=== PATIENT | female | born 1925 | race Caucasian/White ===

== ENCOUNTER 2016-08-13 11:32 | Inpatient (IN) | payer MEDICARE ==
[~2016-08-13] VITALS: Ht 144.8 cm; Wt 49.2 kg
[~2016-08-13 11:32] MED LIST: ANTIVERT/2525 MG PO; ARICEPT10 M1 PO; ASPIR 8181 MG PO; ASPIRIN325 MG PO; COZAAR50 MG PO; DUONEB 3 MG/3 ML3 M1 INH; HYDROCHLOROTHIA25 MG PO; HYDROCODONE BIT1 T11 PO; HYDRODIURIL25 MG PO; LOSARTAN POTAS100 M1 PO; Lovenox30 MG/0.3 SC; NAPROSYN500 MG PO; PRILOSEC20 MG PO; PROTONIX40 MG PO; RANITIDINE150 MG PO; SYNTHROID25 MCG PO; TYLENOL325 M1 PO; VICO75300 PO; VITAMIN D1000 IU PO; XANAX0.25 MG PO; ZOFRAN4 MG PO
[2016-08-13 11:38] VITALS: BP 130/80
[2016-08-13 12:45] LABS: BASO # 0.1 10*3/uL (0.0-0.1); BASO % 0.5 % (0.0-1.0); EOS # 0.1 10*3/uL (0.0-0.4); EOS % 1.1 % (1.0-4.0); HEMATOCRIT 32.8 % (37.0-47.0); HEMOGLOBIN 9.7 g/dl (12.0-16.0); LYMPH # 1.2 10*3/uL (1.3-4.4); MEAN CELL VOLUME 81.8 fl (81.0-99.0); MEAN CORPUSCULAR HGB 24.2 pg (27.0-31.0); MEAN CORPUSCULAR HGB CONC 29.6 g/dl (33.0-37.0); MEAN PLATELET VOLUME 10.4 fl (9.6-12.3); MONO # 1.2 10*3/uL (0.1-1.0); MONO % 12.2 % (3.0-9.0); NEUT # 6.9 10*3/uL (2.3-7.9); NEUT % 72.9 % (47.0-73.0); PLATELET COUNT AUTOMATED 369 10*3/uL (130-400); RED BLOOD COUNT 4.01 10*6/uL (4.10-5.10); WHITE BLOOD COUNT 9.4 10*3/uL (4.8-10.8)
[2016-08-13 13:01] LABS: ALBUMIN 3.4 gm/dl (3.1-4.5); BILIRUBIN, TOTAL 0.3 mg/dl (0.2-1.0); POTASSIUM 4.7 mmol/L (3.5-5.1); TOTAL PROTEIN 7.3 gm/dL (6.4-8.2)
[2016-08-13 15:01] LABS: BILIRUBIN NEGATIVE (NEGATIVE); BLOOD TRACE-INTACT (NEGATIVE); CLARITY CLEAR (CLEAR); COLOR YELLOW (YELLOW); GLUCOSE NEGATIVE (NEGATIVE); KETONE NEGATIVE (NEGATIVE); LEUKO ESTERASE NEGATIVE (NEGATIVE); NITRITE NEGATIVE (NEGATIVE); PH 5.5 (5.0-9.0); PROTEIN NEGATIVE (NEGATIVE); UROBILINOGEN 0.2 E.U./dl (0.2-1.0)
[2016-08-13 15:13] LABS: BACTERIA 1+; URINE REFLEX COMMENT NO (NO)
[2016-08-13 15:47] VITALS: BP 122/60
[2016-08-13] MEDS ORDERED: RISPERIDONE0.25 M2 PO (16:23)
[2016-08-13] MEDS ORDERED: RANITIDINE HCL150 M1 PO (16:24)
[2016-08-13] MEDS ORDERED: Synthroid,Levo50 MCG PO (16:25)
[2016-08-13 16:45] VITALS: BP 139/49
[2016-08-13 18:48] LABS: CKMB 4.7 ng/ml (0.5-3.6)
[2016-08-13 20:00] VITALS: BP 148/72
[2016-08-14] VITALS: BP 152/71
[2016-08-14 01:28] LABS: CKMB 4.8 ng/ml (0.5-3.6)
[2016-08-14 06:36] LABS: BASO % 0.5 % (0.0-1.0); EOS # 0.4 10*3/uL (0.0-0.4); EOS % 4.7 % (1.0-4.0); HEMATOCRIT 30.1 % (37.0-47.0); LYMPH # 1.6 10*3/uL (1.3-4.4); LYMPH % 19.5 % (27.0-41.0); MEAN CELL VOLUME 81.6 fl (81.0-99.0); MEAN CORPUSCULAR HGB 24.4 pg (27.0-31.0); MEAN CORPUSCULAR HGB CONC 29.9 g/dl (33.0-37.0); MEAN PLATELET VOLUME 10.6 fl (9.6-12.3); MONO # 1.1 10*3/uL (0.1-1.0); NEUT % 62.1 % (47.0-73.0); PLATELET COUNT AUTOMATED 315 10*3/uL (130-400); RED BLOOD COUNT 3.69 10*6/uL (4.10-5.10); RED CELL DISTRI WIDTH 13.9 % (0-14.5); WHITE BLOOD COUNT 8.1 10*3/uL (4.8-10.8)
[2016-08-14 06:56] LABS: CKMB 4.2 ng/ml (0.5-3.6)
[2016-08-14 07:04] LABS: HEMOGLOBIN A1c 5.7 % (4.8-5.6)
[2016-08-14 07:13] LABS: INTERNATIONAL NORM RATIO 1.1 (2.0-3.5)
[2016-08-14 07:23] LABS: FREE T4 1.38 ng/dl (0.76-1.46); MAGNESIUM 1.8 mg/dL (1.5-2.1); POTASSIUM 3.9 mmol/L (3.5-5.1); THYROID STIM HORMONE (HS) 3.15 uIU/ml (0.358-4.75)
[2016-08-14 08:00] VITALS: BP 130/51
[2016-08-14 12:00] VITALS: BP 154/75
[2016-08-14 16:00] VITALS: BP 123/39
[2016-08-14 20:00] VITALS: BP 105/57
[2016-08-15] VITALS: BP 126/84
[2016-08-15 05:39] LABS: POTASSIUM 3.7 mmol/L (3.5-5.1)
[2016-08-15 08:00] VITALS: BP 146/65
[2016-08-15] MEDS ORDERED: LEVAQUIN500 M2 PO (11:38)
[2016-08-15] MEDS ORDERED: LEVAQUIN750 M1 PO (11:43)
[2016-08-16 14:37] LABS: FOLIC ACID 6.46 ng/mL (>5.38)
== END 2016-08-15 14:49 | disposition home or self-care (01) | DRG 193 ==
LOC: ED 11:32 → EDHOLD 14:44 → 4E 14:44
PROVIDERS: Family Medicine; Internal Medicine; Physician Assistant
DX: J12.9 Viral pneumonia, unspecified (principal); G93.40 Encephalopathy, unspecified; E44.0 Moderate protein-calorie malnutrition; E87.8 Other disorders of electrolyte and fluid balance, not elsewhere classified; D64.9 Anemia, unspecified; E03.9 Hypothyroidism, unspecified; I12.9 Hypertensive chronic kidney disease with stage 1 through stage 4 chronic kidney disease, or unspecified chronic kidney disease; N18.3 Chronic kidney disease, stage 3 (moderate); K21.9 Gastro-esophageal reflux disease without esophagitis; G30.9 Alzheimer's disease, unspecified; F02.80 Dementia in other diseases classified elsewhere, unspecified severity, without behavioral disturbance, psychotic disturbance, mood disturbance, and anxiety; Z79.899 Other long term (current) drug therapy; Z88.0 Allergy status to penicillin; Z98.890 Other specified postprocedural states; Z68.28 Body mass index [BMI] 28.0-28.9, adult